=== PATIENT | male | born 1995 | race Caucasian/White ===

== ENCOUNTER 2016-09-16 00:09 | Emergency (ER) | payer SELFPAY ==
[2016-09-16 00:26] VITALS: BP 145/81
[2016-09-16] MEDS ORDERED: Ketorolac 60 MG/2 ML SDV IM ONE (00:31)
[2016-09-16] MEDS ORDERED: Ondansetron 4 MG Tab.DIS PO ONE (00:32)
--- NOTE | 2016-09-17 03:43 | ER ---
DATE SEEN: 09/16/2016 TIME SEEN: 0030 hours. CHIEF COMPLAINT: Pain, testicle. HISTORY OF PRESENT ILLNESS: This is a 20-year-old male complaining of pain in the left testicle for approximately 2-3 days, started insidiously after he lifted a heavy weight. The pain is sharp, moderate to severe. It radiates to the abdomen area. Nothing seems to improve it except rest. Walking makes it hard. No associated swelling, urethral drainage or discharge. No dysuria or frequency, but has some nausea. PAST MEDICAL HISTORY: No active medical problems. SOCIAL HISTORY: He has recently moved from [place] working in town, has not been sexually active for more than 8 months. ALLERGIES: No known allergies. PHYSICAL EXAMINATION: GENERAL: Nontoxic, well-developed male who appeared in no distress. ABDOMEN: Soft, with no masses. GENITAL: Examination revealed normal external genitalia, male. Bilateral descended testes. There was tenderness on the left epididymis. Positive cremasteric reflex. No urethral drainage or masses are palpable in the testicle. IMPRESSION: Acute scrotum. PLAN: My plan is 60 mg of Toradol. Zofran 4 mg IM. I obtained urine to obtain GC and chlamydia. I also ordered for an ultrasound Doppler to rule out testicular torsion. This will be done in the morning and he will follow up in the clinic with me the 1st thing in the morning. /[id number] ANYI/SABIHA
--- NOTE | 2016-09-20 08:56 | ER ---
DATE SEEN: 09/16/2016 ADDENDUM: IMPRESSION: Pain in the scrotum. /[id number] ANYI/SABIHA
== END 2016-09-16 00:45 | disposition home or self-care (01) ==
LOC: FB.ED 00:09
DX: N50.82 Scrotal pain (principal)
CPT/HCPCS: 87491; 87591; 96372; 99283; A9270; J1885